=== PATIENT | female | born 1995 | race Hispanic/Latino ===

== ENCOUNTER 2018-11-02 15:35 | Emergency (ER) | payer OTHER ==
[2018-11-02 17:05] LABS: RAPID GROUP A STREP NEGATIVE (NEGATIVE)
[2018-11-02] MEDS ORDERED: ACETAMINOPHEN EXTRA STRENGTH 500 MG TABLET ONE (17:31)
[2018-11-02] MEDS ORDERED: OSELTAMIVIR PHOSPHATE 75 MG CAP ONE (17:32)
[2018-11-02] MEDS ORDERED: ONDANSETRON ODT 4 MG TAB ONE (17:32)
== END 2018-11-02 18:15 | disposition home or self-care (01) ==
LOC: EDH 15:35
DX: J10.1 Influenza due to other identified influenza virus with other respiratory manifestations (principal)
CPT/HCPCS: 87804; 87880